=== PATIENT | female | born 1965 | race Caucasian/White ===

== ENCOUNTER 2021-03-05 02:24 | Day surgery (SDC) | payer BC, SELFPAY ==
--- NOTE | 2021-03-04 13:55 | WPDANESEPPF ---
Anes - Initial Pre Proc Eval Procedure: Operation Date: 03/05/21 07:30 Proposed Procedures p Bilateral Breast Reduction - Liang Gallegos MD Date/Time: 03/04/21 13:55 Surgeon: Liang Gallegos MD Pre Op Diagnosis: macromastia Patient Data Age: 55 Gender: F Height: Weight: Allergies Allergy/AdvReac Type Severity Reaction Status Date / Time NSAIDS (Non-Steroidal Allergy Severe Anaphylaxis Verified 03/04/21 15:01 Anti-Inflamma Sulfa (Sulfonamide Allergy Intermediate Hives Verified 03/04/21 15:01 Antibiotics) Home Medications Medication Instructions Recorded Confirmed Type atenolol 50 mg tablet 50 mg PO DAILY tablet 09/23/20 03/04/21 History hydrochlorothiazide 5 mg PO DAILY 09/23/20 03/04/21 History docusate sodium 100 mg capsule 100 mg PO BID #14 cap 02/17/21 03/04/21 Rx hydrocodone 5 mg-acetaminophen 325 1 tablet PO Q6H PRN #15 tablet 02/17/21 03/04/21 Rx mg tablet ondansetron HCl 4 mg tablet 4 mg PO Q6H PRN #30 tablet 02/17/21 03/04/21 Rx cyanocobalamin (vitamin B-12) 03/04/21 History [id number]-vit K 1 tab-cap PO DAILY 03/04/21 03/04/21 History [Multi For Her] Patient hx anesthesia problems: none Family hx anesthesia problems: none PMFSH Past Medical History Medical History (Updated 03/04/21 @ 14:01 by Durga George MD) Chronic back pain Chronic neck pain HTN (hypertension) Macromastia Obesity (BMI 30-39.9) Social History Social History Smoking status: Never smoker Alcohol intake: current Drinks per week: 3 Substance use: never Substance use type: does not use Living arrangements: with family Spiritual care concerns: No Anes - Eval Final PreProcedure Day of Procedure 03/04/21 13:55 Patient weight: obese Heart: regular rate and rhythm Lungs: clear to auscultation and normal air movement Airway: Mallampati scale class II Neurological: alert and oriented Last oral intake: >/= 8 hours ASA classification: II Emergent: no Anesthetic plan: proceed Anesthesia type and monitoring: general LMA Informed Consent: The patient's anesthetic plan and its attendant risks and benefits were discussed with the patient/family/POA. Questions were solicited and answers provided to the satisfaction of the patient/family/POA.
[2021-03-04 15:37] VITALS: BMI 29.5
[2021-03-05] VITALS (10 sets, daily range): BP systolic 105–141; BP diastolic 63–88; PULSE 65–70; RESP 14–18; TEMP 36.2–36.8; O2SAT 100
[2021-03-05 06:44] LABS: Urine Cotinine NEGATIVE
--- NOTE | 2021-03-05 07:01 | WPDHPUPDATE1 ---
History and Physical Update Update Date/Time: 03/05/21 07:01 History and Physical has been reviewed, including an updated exam of the patient. There are NO changes in the patient's condition. Risks, benefits, and alternatives have been discussed and questions answered. Patient agrees to proceed with procedure.
--- NOTE | 2021-03-05 07:08 | P.OP_ITS ---
Procedure Note - Detailed Date of Procedure 03/05/21 Pre-op Diagnosis macromastia Post-op Diagnosis same Procedure Performed Bilateral Reduction Mammaplasty Surgeon Liang Gallegos MD Anesthesia general Findings Bilateral inverted T Superior medial pedicle Tissue removed: Right - 443.2 grams Left - 532.7 grams Description of Procedure She is here today for bilateral breast reduction. Previously and again today the risks, benefits, alternatives were discussed in extensive detail. I wanted her to be very realistic about the risks involved as well as expectations. We discussed aftercare and what to monitor for. She understands we can never guarantee final breast size and there will always be asymmetry. I was very upfront and honest about the risks of sensation change and even nipple loss (). Made sure answered all of her questions to her satisfaction today and consent was obtained. She was marked in the preoperative holding area with their verification. The patient was taken to the operating room placed supine on the operating table. Anesthesia was provided by anesthesiology. She was prepped and draped in a standard sterile fashion. A surgical time-out was taken. Stab incisions were made and I tumessed with a tumescent solution. I marked out the nipple-areolar complex at 42 mm. I then de-epithelialized the pedicle. The pedicle was well left well more than 2 cm in thickness. I then removed the inferior portion of the breast as well as the central keel to get shape based on preoperative planning. At this point copiously irrigated with saline solution and verified a strict hemostasis. I reapproximated the pillars using a 2-0 PDS. I tailor tacked the breast into place with bob. She was placed in a sitting position. I verified the nipple-areolar complex position based on preoperative markings, intraoperative measurements, and observation which were in full agreement. This nipple-areolar complex was marked at 42 mm in size. I then placed supine and de-epithelialized this. Nipple-areolar complex was inset with 3-0 Monocryl. I closed IMF deep with 1 strattafix. I closed the vertical incision with 3-0 Monocryl in the IMF with 3- 0 stratafix. Then everything was closed using a running subcuticular 4-0 Monocryl followed by Steri-Strips. A dressing was placed followed by surgical bra. Patient was awoke and taken to PACU without difficulty. All instrument sponge counts were correct at the end of the case. Estimated Blood Loss 30 Drains No Packing No Pathology yes (Bilateral breast tissue) Complications No immediate complications Condition stable Disposition PACU
[2021-03-05] MEDS: LACTATED RINGERS 1,000 ML 30 ML IV CONT ×2 (07:16→10:10)
[2021-03-05] MEDS: ceFAZolin 2 GM/D5W 50 ML 2 GM/50 ML BAG IVPB (07:32)
[2021-03-05] MEDS: TRANEXAMIC ACID 1,000MG/ISO100 1,000 MG/100 ML BAG 200 MG IVPB (07:32)
[2021-03-05 07:48] LABS: Anion Gap 7 mmol/L (8-16); Blood Urea Nitrogen 19 mg/dL (7-17); Calcium 9.3 mg/dL (8.4-10.2); Carbon Dioxide 26 mmol/L (22-30); Chloride 106 mmol/L (98-107); Estimated CRCL calculation 72 ml/min; Estimated Glomerular Filt Rate > 60; Glucose 108 mg/dL (65-110); Potassium 4.2 mmol/L (3.4-5.0); Sodium 139 mmol/L (137-145)
[2021-03-05] MEDS: LACTATED RINGERS IRRIG 1,000 ML, LIDOCAINE HCL 1% LOCAL INJ 50 ML, EPINEPHrine HCL INJ ... INFILTRATE (08:30)
--- NOTE | 2021-03-05 10:17 | SUR.PHASEI ---
Simple mask removed at 1014.
[2021-03-05] MEDS: oxyCODONE HCL (*CRX) 5 MG TAB IR PO (11:43)
== END 2021-03-05 11:46 | disposition home or self-care (01) ==
PROVIDERS: Anesthesiology; PCP Internal Medicine; Visit Provider Surgery Plastic and Reconstructive Surgery
PROC: 0HBV0ZZ Excision of Bilateral Breast, Open Approach (ICD-10-PCS; CPT 19318; principal; 2021-03-05 07:30)
DX: N62 Hypertrophy of breast (principal); N60.12 Diffuse cystic mastopathy of left breast; N60.11 Diffuse cystic mastopathy of right breast; N60.42 Mammary duct ectasia of left breast; N60.41 Mammary duct ectasia of right breast; L82.1 Other seborrheic keratosis; L91.8 Other hypertrophic disorders of the skin; I10 Essential (primary) hypertension; E66.9 Obesity, unspecified; Z68.29 Body mass index [BMI] 29.0-29.9, adult; Z88.2 Allergy status to sulfonamides; Z79.899 Other long term (current) drug therapy
CPT/HCPCS: 19318; 80048; 80307; 88305; A9270; J0171; J0690; J1100; J1170; J2250; J2405; J2704; J3010; J7120